=== PATIENT | female | born 1995 | race Caucasian/White ===

== ENCOUNTER → 2019-07-21 | Outpatient (CLI) | payer OTHER | END | disposition home or self-care (01) | LOC: LAB 10:32 | PROVIDERS: ATTEND Preventive Medicine Preventive Medicine/Occupational Environmental Medicine | DX: Z02.1 Encounter for pre-employment examination (principal) | CPT/HCPCS: 36415; 86706; 86735; 86762; 86765; 86787 ==

== ENCOUNTER → 2019-12-22 | Outpatient (CLI) | payer BC, MEDICAID ==
[2019-12-22 11:02] LABS: Basophils # (auto) 0 uL; Basophils % (auto) 0.7 % (0.0-2.0); Eosinophils # (auto) 0.1 uL; Eosinophils % (auto) 2.7 % (0.0-7.0); Hematocrit 41.4 % (36.0-46.0); Lymphocytes % (auto) 42.9 % (10.0-50.0); Mean Corpuscular Hemoglobin 30.8 pg (28.0-32.0); Mean Corpuscular Hgb Conc. 33.7 g/dL (32.0-36.0); Mean Corpuscular Volume 91.3 fL (80.0-100.0); Monocytes # (auto) 0.4 uL; Monocytes % (auto) 9.4 % (0.0-12.0); Neutrophils # (auto) 2.1 uL; Neutrophils % (auto) 44.3 % (37.0-80.0); Nucleated Red Blood Cells % 0.1 %; Platelet Count (auto) 168 10^3/uL (140-450); Red Blood Cells 4.53 10^6/uL (4.0-5.20); Red Cell Distribution Width 13.2 % (11.8-14.3); White Blood Cell 4.7 10^3/uL (4.4-10.8)
== END | disposition home or self-care (01) ==
LOC: LAB 10:47
PROVIDERS: ATTEND Specialist
DX: N93.9 Abnormal uterine and vaginal bleeding, unspecified (principal)
CPT/HCPCS: 36415; 84702; 85025; 87086

== ENCOUNTER → 2019-12-31 | Outpatient (CLI) | payer BC ==
[2019-12-31 14:25] LABS: Basophils # (auto) 0 uL; Basophils % (auto) 0.9 % (0.0-2.0); Eosinophils # (auto) 0.1 uL; Eosinophils % (auto) 1.9 % (0.0-7.0); Hematocrit 42.5 % (36.0-46.0); Hemoglobin 14.2 g/dL (12.2-16.2); Lymphocytes # (auto) 1.3 uL; Lymphocytes % (auto) 26.1 % (10.0-50.0); Mean Corpuscular Hemoglobin 30.7 pg (28.0-32.0); Mean Corpuscular Hgb Conc. 33.4 g/dL (32.0-36.0); Mean Corpuscular Volume 91.8 fL (80.0-100.0); Monocytes # (auto) 0.3 uL; Monocytes % (auto) 6.5 % (0.0-12.0); Neutrophils # (auto) 3.1 uL; Neutrophils % (auto) 64.6 % (37.0-80.0); Platelet Count (auto) 171 10^3/uL (140-450); Red Blood Cells 4.63 10^6/uL (4.0-5.20); Red Cell Distribution Width 13.2 % (11.8-14.3); White Blood Cell 4.8 10^3/uL (4.4-10.8)
[2019-12-31 14:53] LABS: Albumin 3.9 g/dL (3.4-5.0); Calcium 9.1 mg/dL (8.5-10.1); Potassium 4.1 mmol/L (3.5-5.1)
[2019-12-31 14:59] LABS: BUN/Creatinine Ratio 11.6; Bilirubin, Total 0.9 mg/dL (0.2-1.0); Total Protein 7.4 g/dL (6.4-8.2)
== END | disposition home or self-care (01) ==
LOC: LAB 14:09
PROVIDERS: ATTEND Internal Medicine
DX: K59.00 Constipation, unspecified (principal); R42 Dizziness and giddiness
CPT/HCPCS: 36415; 80053; 80061; 83036; 84439; 84443; 85025; 85379; 85652

== ENCOUNTER → 2020-02-07 | Outpatient (CLI) | payer BC | END | disposition home or self-care (01) | LOC: LAB 15:10 | PROVIDERS: ATTEND Internal Medicine | DX: K59.09 Other constipation (principal) | CPT/HCPCS: 36415; 82565; 84520 ==

== ENCOUNTER → 2020-04-28 | Day surgery (SDC) | payer BC, MEDICAID ==
[2020-04-26 15:19] LABS: Basophils # (auto) 0 10 ^3/uL (0-0.2); Basophils % (auto) 0.6 % (0.0-2.0); Eosinophils # (auto) 0.1 10 ^3/uL (0-0.8); Eosinophils % (auto) 2.3 % (0.0-7.0); Hematocrit 43.5 % (36.0-46.0); Hemoglobin 14.5 g/dL (12.2-16.2); Lymphocytes # (auto) 1.5 10 ^3/uL (0.4-5.4); Lymphocytes % (auto) 26.1 % (10.0-50.0); Mean Corpuscular Hemoglobin 30.9 pg (28.0-32.0); Mean Corpuscular Hgb Conc. 33.4 g/dL (32.0-36.0); Mean Corpuscular Volume 92.4 fL (80.0-100.0); Monocytes # (auto) 0.5 10 ^3/uL (0-1.3); Neutrophils # (auto) 3.6 10 ^3/uL (1.6-8.6); Platelet Count (auto) 170 10^3/uL (140-450); Red Blood Cells 4.71 10^6/uL (4.0-5.20); Red Cell Distribution Width 13.4 % (11.8-14.3); White Blood Cell 5.7 10^3/uL (4.4-10.8)
[2020-04-26 15:27] LABS: INR 0.95 (0.9-1.15); Partial Thromboplastin Time 25.6 sec (23.64-32.05)
[~2020-04-28] VITALS: Ht 160 cm; Wt 74.8 kg
[~2020-04-28] MED LIST: FLUO-126 PO; LACT10SO70 PO; MELA10CA PO; SODIUM CHLORIDE LOCK 10 ML ONE; [UNRECOGNIZED DRUG - CODE] PO
[2020-04-28] MEDS: fentaNYL CITRATE 100 MCG/2 ML VL ONE ×2 (11:50→11:53)
[2020-04-28] MEDS: MIDAZOLAM HCL 5 MG/ML-1ML VIAL ONE ×2 (11:50→11:53)
[2020-04-28] MEDS: diphenhdrAMINE HCL 50 MG/1 ML VL ONE ×2 (11:50→11:53)
[2020-04-28 12:26] VITALS: BP 111/67
== END | disposition home or self-care (01) ==
LOC: GI 10:54
PROVIDERS: ATTEND Internal Medicine Gastroenterology
DX: K59.00 Constipation, unspecified (principal); K64.8 Other hemorrhoids; K63.89 Other specified diseases of intestine; F41.9 Anxiety disorder, unspecified; Z88.0 Allergy status to penicillin; Z88.1 Allergy status to other antibiotic agents; Z98.890 Other specified postprocedural states; Z79.899 Other long term (current) drug therapy; Z11.59 Encounter for screening for other viral diseases
CPT/HCPCS: 36415; 45378; 84702; 85025; 85610; 85730; J1200; J2250; J3010; J7030; U0003; 99152

== ENCOUNTER → 2020-05-31 | Outpatient (CLI) | payer BC, MEDICAID ==
[~2020-05-31] MED LIST changes: -SODIUM CHLORIDE LOCK 10 ML ONE
[2020-05-31 10:48] LABS: Follicle Stimulating Hormone 3.88 IU/L (SEE BELOW)
== END | disposition home or self-care (01) ==
LOC: LAB 09:26
PROVIDERS: ATTEND Obstetrics & Gynecology
DX: N93.9 Abnormal uterine and vaginal bleeding, unspecified (principal)
CPT/HCPCS: 36415; 82670; 83001; 83002; 84403; 84443

== ENCOUNTER → 2020-06-08 | Outpatient (CLI) | payer BC, MEDICAID ==
[2020-06-08 17:33] LABS: Basophils # (auto) 0 10 ^3/uL (0-0.2); Basophils % (auto) 0.6 % (0.0-2.0); Eosinophils # (auto) 0.2 10 ^3/uL (0-0.8); Eosinophils % (auto) 4.1 % (0.0-7.0); Hematocrit 41.7 % (36.0-46.0); Lymphocytes # (auto) 1.9 10 ^3/uL (0.4-5.4); Lymphocytes % (auto) 35.6 % (10.0-50.0); Mean Corpuscular Hemoglobin 31.1 pg (28.0-32.0); Mean Corpuscular Hgb Conc. 33.5 g/dL (32.0-36.0); Monocytes # (auto) 0.4 10 ^3/uL (0-1.3); Monocytes % (auto) 6.7 % (0.0-12.0); Neutrophils # (auto) 2.9 10 ^3/uL (1.6-8.6); Platelet Count (auto) 184 10^3/uL (140-450); Red Blood Cells 4.49 10^6/uL (4.0-5.20); Red Cell Distribution Width 13.2 % (11.8-14.3); White Blood Cell 5.4 10^3/uL (4.4-10.8)
== END | disposition home or self-care (01) ==
LOC: LAB 16:41
PROVIDERS: ATTEND Internal Medicine
DX: M25.50 Pain in unspecified joint (principal)
CPT/HCPCS: 36415; 82378; 85025; 85652; 86038; 86431

== ENCOUNTER → 2020-06-15 | Outpatient (CLI) | payer BC, MEDICAID ==
[2020-06-15 12:21] LABS: Basophils # (auto) 0 10 ^3/uL (0-0.2); Basophils % (auto) 0.7 % (0.0-2.0); Eosinophils # (auto) 0.3 10 ^3/uL (0-0.8); Eosinophils % (auto) 5.1 % (0.0-7.0); Hematocrit 42.2 % (36.0-46.0); Lymphocytes # (auto) 2.5 10 ^3/uL (0.4-5.4); Lymphocytes % (auto) 37.4 % (10.0-50.0); Mean Corpuscular Hemoglobin 30.9 pg (28.0-32.0); Mean Corpuscular Hgb Conc. 33.2 g/dL (32.0-36.0); Mean Corpuscular Volume 93.2 fL (80.0-100.0); Monocytes # (auto) 0.4 10 ^3/uL (0-1.3); Neutrophils # (auto) 3.4 10 ^3/uL (1.6-8.6); Neutrophils % (auto) 50.8 % (37.0-80.0); Nucleated Red Blood Cells % 0.1 %; Platelet Count (auto) 193 10^3/uL (140-450); Red Blood Cells 4.54 10^6/uL (4.0-5.20); Red Cell Distribution Width 13.1 % (11.8-14.3); White Blood Cell 6.6 10^3/uL (4.4-10.8)
== END | disposition home or self-care (01) ==
LOC: LAB 11:54
PROVIDERS: ATTEND Obstetrics & Gynecology
DX: R10.9 Unspecified abdominal pain (principal)
CPT/HCPCS: 36415; 84702; 85025

== ENCOUNTER → 2020-07-18 | Outpatient (CLI) | payer BC, MEDICAID | END | disposition home or self-care (01) | LOC: LAB 09:20 | PROVIDERS: ATTEND Specialist | DX: R10.9 Unspecified abdominal pain (principal) | CPT/HCPCS: 36415; 82565; 84520 ==

== ENCOUNTER 2020-10-22 10:04 | Emergency (ER) | payer BC, MEDICAID ==
[~2020-10-22] VITALS: Ht 157.5 cm; Wt 79.4 kg
[2020-10-22 11:56] LABS: Basophils # (auto) 0 10 ^3/uL (0-0.2); Basophils % (auto) 0.6 % (0.0-2.0); Eosinophils # (auto) 0.1 10 ^3/uL (0-0.8); Eosinophils % (auto) 1.4 % (0.0-7.0); Hematocrit 40.1 % (36.0-46.0); Hemoglobin 13.7 g/dL (12.2-16.2); Lymphocytes # (auto) 1.5 10 ^3/uL (0.4-5.4); Lymphocytes % (auto) 28.6 % (10.0-50.0); Mean Corpuscular Hemoglobin 31.6 pg (28.0-32.0); Mean Corpuscular Hgb Conc. 34.1 g/dL (32.0-36.0); Mean Corpuscular Volume 92.6 fL (80.0-100.0); Monocytes # (auto) 0.3 10 ^3/uL (0-1.3); Neutrophils # (auto) 3.4 10 ^3/uL (1.6-8.6); Neutrophils % (auto) 63.4 % (37.0-80.0); Nucleated Red Blood Cells % 0.1 %; Platelet Count (auto) 220 10^3/uL (140-450); Red Blood Cells 4.33 10^6/uL (4.0-5.20); White Blood Cell 5.4 10^3/uL (4.4-10.8)
[2020-10-22 12:17] LABS: Potassium 4.4 mmol/L (3.5-5.1)
[2020-10-22 12:23] LABS: Albumin 3.7 g/dL (3.4-5.0); BUN/Creatinine Ratio 15.5; Bilirubin, Total 0.4 mg/dL (0.2-1.0); Calcium 9.2 mg/dL (8.5-10.1); Total Protein 7.5 g/dL (6.4-8.2)
[2020-10-22 16:00] VITALS: BP 136/78
== END 2020-10-22 16:46 | disposition home or self-care (01) ==
LOC: ER 10:04
DX: G43.909 Migraine, unspecified, not intractable, without status migrainosus (principal)
CPT/HCPCS: 36415; 70450; 80053; 85025

== ENCOUNTER → 2020-11-06 | Outpatient (CLI) | payer BC, MEDICAID | END | disposition home or self-care (01) | LOC: LAB 15:58 | PROVIDERS: ATTEND Physician Assistant | DX: Z20.828 Contact with and (suspected) exposure to other viral communicable diseases (principal) | CPT/HCPCS: C9803; U0003 ==

== ENCOUNTER → 2020-12-25 | Outpatient (CLI) | payer BC, MEDICAID ==
[2020-12-25 10:58] LABS: Basophils # (auto) 0 10 ^3/uL (0-0.2); Basophils % (auto) 0.8 % (0.0-2.0); Eosinophils # (auto) 0.1 10 ^3/uL (0-0.8); Eosinophils % (auto) 1.9 % (0.0-7.0); Hematocrit 37.6 % (36.0-46.0); Hemoglobin 12.8 g/dL (12.2-16.2); Lymphocytes # (auto) 2.1 10 ^3/uL (0.4-5.4); Lymphocytes % (auto) 43.4 % (10.0-50.0); Mean Corpuscular Hemoglobin 31.2 pg (28.0-32.0); Mean Corpuscular Volume 91.8 fL (80.0-100.0); Monocytes # (auto) 0.4 10 ^3/uL (0-1.3); Monocytes % (auto) 8.3 % (0.0-12.0); Neutrophils # (auto) 2.2 10 ^3/uL (1.6-8.6); Neutrophils % (auto) 45.6 % (37.0-80.0); Nucleated Red Blood Cells % 0.1 %; Platelet Count (auto) 209 10^3/uL (140-450); Red Blood Cells 4.09 10^6/uL (4.0-5.20); Red Cell Distribution Width 12.5 % (11.8-14.3); White Blood Cell 4.8 10^3/uL (4.4-10.8)
[2020-12-25 11:31] LABS: Calcium 9.2 mg/dL (8.5-10.1); Potassium 4.1 mmol/L (3.5-5.1)
[2020-12-25 11:46] LABS: Albumin 3.7 g/dL (3.4-5.0); BUN/Creatinine Ratio 21.7; Bilirubin, Total 0.6 mg/dL (0.2-1.0); Total Protein 7.9 g/dL (6.4-8.2)
== END | disposition home or self-care (01) ==
LOC: LAB 10:38
PROVIDERS: ATTEND Internal Medicine
DX: J90 Pleural effusion, not elsewhere classified (principal); Z86.16 Personal history of COVID-19
CPT/HCPCS: 36415; 80053; 82728; 85025; 85379; 85652

== ENCOUNTER → 2021-02-21 | Outpatient (CLI) | payer BC, MEDICAID | END | disposition home or self-care (01) | LOC: LAB 12:32 | PROVIDERS: ATTEND Nurse Practitioner Family | DX: R30.0 Dysuria (principal) | CPT/HCPCS: 87086 ==

== ENCOUNTER 2021-04-16 14:52 | Emergency (ER) | payer BC, MEDICAID ==
[~2021-04-16] VITALS: Ht 157.5 cm; Wt 83.9 kg
[2021-04-16] MEDS ORDERED: ASPirin 81 mg TAB PO ONE (15:15)
[2021-04-16 15:38] LABS: Basophils # (auto) 0 10 ^3/uL (0-0.2); Basophils % (auto) 0.6 % (0.0-2.0); Eosinophils # (auto) 0.1 10 ^3/uL (0-0.8); Eosinophils % (auto) 0.9 % (0.0-7.0); Hematocrit 40.5 % (36.0-46.0); Hemoglobin 14.1 g/dL (12.2-16.2); Lymphocytes # (auto) 1.9 10 ^3/uL (0.4-5.4); Lymphocytes % (auto) 30.2 % (10.0-50.0); Mean Corpuscular Hemoglobin 31.1 pg (28.0-32.0); Mean Corpuscular Hgb Conc. 34.7 g/dL (32.0-36.0); Mean Corpuscular Volume 89.5 fL (80.0-100.0); Monocytes # (auto) 0.3 10 ^3/uL (0-1.3); Monocytes % (auto) 5.2 % (0.0-12.0); Neutrophils # (auto) 4.1 10 ^3/uL (1.6-8.6); Neutrophils % (auto) 63.1 % (37.0-80.0); Nucleated Red Blood Cells % 0.2 %; Platelet Count (auto) 231 10^3/uL (140-450); Red Blood Cells 4.53 10^6/uL (4.0-5.20); Red Cell Distribution Width 12.7 % (11.8-14.3); White Blood Cell 6.4 10^3/uL (4.4-10.8)
[2021-04-16] MEDS ORDERED: LORazepam 0.5 MG TAB PO ONE (15:45)
[2021-04-16 16:08] LABS: Albumin 4.2 g/dL (3.4-5.0); Anion Gap 7 (5-15); Blood Urea Nitrogen 11 mg/dL (7-18); Calcium 9.2 mg/dL (8.5-10.1); Carbon Dioxide 26 mmol/L (21-32); Chloride 106 mmol/L (98-107); Glucose 94 mg/dL (74-106); Sodium 139 mmol/L (136-145)
[2021-04-16 16:10] LABS: Alanine Aminotransferase 27 U/L (13-56); Aspartate Aminotransferase 15 U/L (15-37); BUN/Creatinine Ratio 12.1; GFR African American 98 mL/min; GFR Non-African American 81 mL/min
[2021-04-16 16:15] LABS: Alkaline Phosphatase 49 U/L (45-117); Bilirubin, Total 0.5 mg/dL (0.2-1.0); Total Protein 8.2 g/dL (6.4-8.2)
[2021-04-16 19:29] VITALS: BP 119/65
== END 2021-04-16 19:44 | disposition home or self-care (01) ==
LOC: ER 14:52
DX: R07.89 Other chest pain (principal); F41.9 Anxiety disorder, unspecified; R42 Dizziness and giddiness
CPT/HCPCS: 36415; 70450; 80053; 84484; 85025; 93005

== ENCOUNTER → 2021-05-17 | Outpatient (CLI) | payer BC, MEDICAID ==
[2021-05-17 11:13] LABS: Basophils # (auto) 0.1 10 ^3/uL (0-0.2); Basophils % (auto) 0.7 % (0.0-2.0); Eosinophils # (auto) 0.1 10 ^3/uL (0-0.8); Hemoglobin 13.6 g/dL (12.2-16.2); Lymphocytes # (auto) 2.1 10 ^3/uL (0.4-5.4); Mean Corpuscular Hemoglobin 30.8 pg (28.0-32.0); Mean Corpuscular Hgb Conc. 34.9 g/dL (32.0-36.0); Mean Corpuscular Volume 88.2 fL (80.0-100.0); Monocytes # (auto) 0.5 10 ^3/uL (0-1.3); Neutrophils # (auto) 5.3 10 ^3/uL (1.6-8.6); Neutrophils % (auto) 66.3 % (37.0-80.0); Platelet Count (auto) 205 10^3/uL (140-450); Red Blood Cells 4.42 10^6/uL (4.0-5.20); Red Cell Distribution Width 13.2 % (11.8-14.3); White Blood Cell 7.9 10^3/uL (4.4-10.8)
[2021-05-17 12:51] LABS: Calcium 8.9 mg/dL (8.5-10.1)
[2021-05-17 12:56] LABS: BUN/Creatinine Ratio 15.5; Bilirubin, Total 0.6 mg/dL (0.2-1.0); Total Protein 8.2 g/dL (6.4-8.2)
== END | disposition home or self-care (01) ==
LOC: LAB 10:55
PROVIDERS: ATTEND Internal Medicine
DX: E03.9 Hypothyroidism, unspecified (principal)
CPT/HCPCS: 36415; 80053; 84439; 84443; 85025; 85049; 85652

== ENCOUNTER → 2021-05-23 | Outpatient (CLI) | payer BC, MEDICAID | END | disposition home or self-care (01) | LOC: LAB 15:28 | PROVIDERS: ATTEND Internal Medicine | DX: E03.9 Hypothyroidism, unspecified (principal) | CPT/HCPCS: 87045; 87177; 87427 ==

== ENCOUNTER → 2022-09-26 | Outpatient (CLI) | payer BC, MEDICAID ==
[2022-09-26 11:57] LABS: Basophils # (auto) 0.1 10 ^3/uL (0-0.2); Basophils % (auto) 1.2 % (0.0-2.0); Eosinophils # (auto) 0.1 10 ^3/uL (0-0.8); Eosinophils % (auto) 1.2 % (0.0-7.0); Hemoglobin 12.9 g/dL (12.2-16.2); Lymphocytes # (auto) 1.3 10 ^3/uL (0.4-5.4); Lymphocytes % (auto) 24.8 % (10.0-50.0); Mean Corpuscular Hemoglobin 30.2 pg (28.0-32.0); Mean Corpuscular Hgb Conc. 33.1 g/dL (32.0-36.0); Mean Corpuscular Volume 91.2 fL (80.0-100.0); Monocytes # (auto) 0.3 10 ^3/uL (0-1.3); Monocytes % (auto) 5.4 % (0.0-12.0); Neutrophils # (auto) 3.7 10 ^3/uL (1.6-8.6); Neutrophils % (auto) 67.4 % (37.0-80.0); Nucleated Red Blood Cells % 0.2 %; Red Blood Cells 4.27 10^6/uL (4.0-5.20); Red Cell Distribution Width 13.4 % (11.8-14.3); White Blood Cell 5.4 10^3/uL (4.4-10.8)
[2022-09-26 12:36] LABS: Calcium 9.1 mg/dL (8.5-10.1); Potassium 3.9 mmol/L (3.5-5.1)
[2022-09-26 12:42] LABS: Albumin 3.6 g/dL (3.4-5.0); BUN/Creatinine Ratio 10.8; Bilirubin, Total 0.8 mg/dL (0.2-1.0); Free T4 (Free Thyroxine) 1.05 ng/dL (0.89-1.76); Total Protein 7.3 g/dL (6.4-8.2)
[2022-09-26 12:43] LABS: Follicle Stimulating Hormone 7.34 IU/L (SEE BELOW)
== END | disposition home or self-care (01) ==
LOC: LAB 11:09
PROVIDERS: ATTEND Internal Medicine
DX: R61 Generalized hyperhidrosis (principal); K59.00 Constipation, unspecified
CPT/HCPCS: 36415; 80053; 82670; 82672; 83001; 84144; 84439; 84443; 85025; 87040; 87086

== ENCOUNTER → 2022-10-18 | Outpatient (CLI) | payer BC, MEDICAID ==
[2022-10-18 08:04] LABS: Basophils # (auto) 0 10 ^3/uL (0-0.2); Basophils % (auto) 0.6 % (0.0-2.0); Eosinophils # (auto) 0.1 10 ^3/uL (0-0.8); Hematocrit 39.1 % (36.0-46.0); Hemoglobin 13.1 g/dL (12.2-16.2); Lymphocytes # (auto) 2.8 10 ^3/uL (0.4-5.4); Lymphocytes % (auto) 44.7 % (10.0-50.0); Mean Corpuscular Hgb Conc. 33.5 g/dL (32.0-36.0); Mean Corpuscular Volume 89.3 fL (80.0-100.0); Monocytes # (auto) 0.4 10 ^3/uL (0-1.3); Monocytes % (auto) 5.8 % (0.0-12.0); Neutrophils % (auto) 47.9 % (37.0-80.0); Nucleated Red Blood Cells % 0.1 %; Red Blood Cells 4.38 10^6/uL (4.0-5.20); Red Cell Distribution Width 13.2 % (11.8-14.3); White Blood Cell 6.4 10^3/uL (4.4-10.8)
[2022-10-18 08:14] LABS: Urine Bacteria NONE SEEN /hpf (None Seen); Urine Blood Negative /uL (Negative); Urine Mucus FEW (None Seen); Urine Specific Gravity 1.029 (1.001-1.035); Urine WBC 1 /hpf (0 - 5)
[2022-10-18 08:16] LABS: Albumin 3.8 g/dL (3.4-5.0); Calcium 9.1 mg/dL (8.5-10.1); Potassium 3.8 mmol/L (3.5-5.1)
[2022-10-18 08:20] LABS: BUN/Creatinine Ratio 16.1; Bilirubin, Total 0.6 mg/dL (0.2-1.0); Total Protein 7.8 g/dL (6.4-8.2)
== END | disposition home or self-care (01) ==
LOC: LAB 07:44
PROVIDERS: ATTEND Internal Medicine
DX: N83.201 Unspecified ovarian cyst, right side (principal); K29.70 Gastritis, unspecified, without bleeding
CPT/HCPCS: 36415; 80053; 81001; 82150; 83690; 85025; 86304

== ENCOUNTER → 2022-12-12 | Outpatient (CLI) | payer BC, MEDICAID ==
[2022-12-12 11:44] LABS: Basophils # (auto) 0 10 ^3/uL (0-0.2); Basophils % (auto) 0.8 % (0.0-2.0); Eosinophils # (auto) 0 10 ^3/uL (0-0.8); Eosinophils % (auto) 0.8 % (0.0-7.0); Hematocrit 40.2 % (36.0-46.0); Hemoglobin 13.7 g/dL (12.2-16.2); Lymphocytes # (auto) 1.8 10 ^3/uL (0.4-5.4); Lymphocytes % (auto) 37.7 % (10.0-50.0); Mean Corpuscular Hemoglobin 30.9 pg (28.0-32.0); Mean Corpuscular Hgb Conc. 34.1 g/dL (32.0-36.0); Mean Corpuscular Volume 90.7 fL (80.0-100.0); Monocytes # (auto) 0.3 10 ^3/uL (0-1.3); Monocytes % (auto) 5.6 % (0.0-12.0); Neutrophils # (auto) 2.7 10 ^3/uL (1.6-8.6); Neutrophils % (auto) 55.1 % (37.0-80.0); Red Blood Cells 4.43 10^6/uL (4.0-5.20); Red Cell Distribution Width 13.1 % (11.8-14.3); White Blood Cell 4.8 10^3/uL (4.4-10.8)
== END | disposition home or self-care (01) ==
LOC: LAB 11:33
PROVIDERS: ATTEND Internal Medicine
DX: Z01.812 Encounter for preprocedural laboratory examination (principal)
CPT/HCPCS: 36415; 85025

== ENCOUNTER → 2024-05-06 | Day surgery (SDC) | payer BC, MEDICAID ==
[2024-05-03 10:02] LABS: Urine Bacteria None Seen /hpf (None Seen)
[2024-05-03 10:04] LABS: Basophils # (auto) 0.1 10 ^3/uL (0-0.2); Basophils % (auto) 0.6 % (0.0-2.0); Eosinophils # (auto) 0.1 10 ^3/uL (0-0.8); Eosinophils % (auto) 1.2 % (0.0-7.0); Hemoglobin 13.8 g/dL (12.2-16.2); Lymphocytes # (auto) 1.8 10 ^3/uL (0.4-5.4); Lymphocytes % (auto) 21.6 % (10.0-50.0); Mean Corpuscular Hemoglobin 31.3 pg (28.0-32.0); Mean Corpuscular Hgb Conc. 33.7 g/dL (32.0-36.0); Mean Corpuscular Volume 92.8 fL (80.0-100.0); Monocytes # (auto) 0.5 10 ^3/uL (0-1.3); Monocytes % (auto) 5.5 % (0.0-12.0); Neutrophils # (auto) 5.9 10 ^3/uL (1.6-8.6); Neutrophils % (auto) 71.1 % (37.0-80.0); Nucleated Red Blood Cells % 0.1 %; Red Blood Cells 4.42 10^6/uL (4.0-5.20); Red Cell Distribution Width 13.2 % (11.8-14.3); White Blood Cell 8.4 10^3/uL (4.4-10.8)
[2024-05-03 10:20] LABS: INR 0.93 (0.9-1.15); Partial Thromboplastin Time 25.6 SEC (24.5-34.5); Prothrombin Time 9.9 sec (9.3-11.8)
[2024-05-03 10:30] LABS: Urine Blood Negative /uL (Negative); Urine Clarity Clear (Clear); Urine Color Yellow (Yellow); Urine Hyaline Cast FEW /lpf (0 - 2); Urine Mucus FEW (None Seen); Urine Protein, UAD TRACE (Negative); Urine Specific Gravity 1.023 (1.001-1.035); Urine Urobilinogen Normal (Negative); Urine WBC 1 /hpf (0 - 5); Urine pH 5.5 (5.0-9.0)
[2024-05-03 11:08] LABS: Alanine Aminotransferase 23 U/L (7-40); Alkaline Phosphatase 56 U/L (46-116); Anion Gap 4 (5-15); Blood Urea Nitrogen 9 mg/dL (9-23); Calcium 9.5 mg/dL (8.5-10.1); Carbon Dioxide 24 mmol/L (20-30); Chloride 111 mmol/L (98-107); Glucose 87 mg/dL (74-106); Potassium 3.9 mmol/L (3.5-5.1); Sodium 139 mmol/L (136-145)
[2024-05-03 11:09] LABS: Albumin 4.7 g/dL (3.2-4.8); Aspartate Aminotransferase 8 U/L (13-40); Bilirubin, Total 0.4 mg/dL (0.2-1.0); Total Protein 7.1 g/dL (5.7-8.2)
[~2024-05-06] VITALS: Ht 160 cm; Wt 73.0 kg
[~2024-05-06] MED LIST changes: +DexAMETHasone SOD PHOS 10MG/1ML VIAL INJ ONE; -FLUO-126 PO; +HYDR1TAB97 PO; +HYDROmorphone HCL 2 MG/ML VL/or syr IV PRN; +IBUP1TAB5 PO; +KETOROLAC TROMETH 30 MG/ML 1ML VIAL IV ONE; +KETOROLAC TROMETH 30 MG/ML 1ML VIAL ONE; +LABETALOL HCL 5 MG/ML 4ML SYRINGE IV PRN; -LACT10SO70 PO; +LIDOCAINE 2% JELLY 11ml (GLYDO) ONE; +LIDOCAINE W/ EPINEPHRINE 1% 20ML VIAL ONE; -MELA10CA PO; +MEPERIDINE HCL (50 MG/ML) 1 ML VIAL ONE; +METHYLENE BLUE 0.5% 5MG/ML 10ml AMP IV ONE; +MIDAZOLAM HCL 2MG/2ML 2ml VIAL (1mg/ml) IV PRN; +MIDAZOLAM HCL 2MG/2ML 2ml VIAL (1mg/ml) ONE; +MORPHINE SULFATE 4 MG/ML SYR/VIAL IV PRN; +NORE-68 PO; +ONDANSETRON HCL 4 MG/2 ML VIAL IV ONE; +ONDANSETRON HCL 4 MG/2 ML VIAL ONE; +PROPOFOL 10 MG/ML 20 ML IV ONE; +ROCURONIUM 10MG/ML 10ML VIAL IV ONE; +SERT25TA28 PO; +SUGAMMADEX 200mg/2ml Vial (100MG/ML) IV ONE; +ceFAZolin 2 GM/D5W50ml 50 ML IV ONE; +ePHEDrine SULFATE 50 MG/ML AMP IV PRN; +fentaNYL CITRATE 100 MCG/2 ML VL ONE; +oxyCODONE HCL 5MG TAB ONE
[2024-05-06 09:24] VITALS: RESP 19; TEMP 97.8; O2SAT 100
[2024-05-06] MEDS: oxyCODONE HCL 5MG TAB PO PRN (10:05)
[2024-05-06 10:20] VITALS: BP 116/66; PULSE 69; RESP 16; O2SAT 99
== END | disposition home or self-care (01) ==
LOC: EEVIPCON → SUR 06:30
PROVIDERS: ATTEND Obstetrics & Gynecology
DX: R10.2 Pelvic and perineal pain (principal); N80.9 Endometriosis, unspecified; N97.9 Female infertility, unspecified; Q51.4 Unicornate uterus; K21.9 Gastro-esophageal reflux disease without esophagitis; F41.9 Anxiety disorder, unspecified; Z88.0 Allergy status to penicillin; Z88.1 Allergy status to other antibiotic agents; Z88.8 Allergy status to other drugs, medicaments and biological substances; Z79.899 Other long term (current) drug therapy; Z98.890 Other specified postprocedural states
CPT/HCPCS: 36415; 49321; 58350; 58555; 80053; 81001; 81025; 84702; 85025; 85610; 85730; 86850; 86900; 86901; 88305; 88342; J0690; J1100; J1885; J2175; J2250; J2405; J2704; J3010; J3490; J7040; Q9968

== ENCOUNTER → 2024-09-08 | Outpatient (CLI) | payer BC ==
[~2024-09-08] MED LIST changes: -DexAMETHasone SOD PHOS 10MG/1ML VIAL INJ ONE; -HYDROmorphone HCL 2 MG/ML VL/or syr IV PRN; -KETOROLAC TROMETH 30 MG/ML 1ML VIAL IV ONE; -KETOROLAC TROMETH 30 MG/ML 1ML VIAL ONE; -LABETALOL HCL 5 MG/ML 4ML SYRINGE IV PRN; -LIDOCAINE 2% JELLY 11ml (GLYDO) ONE; -LIDOCAINE W/ EPINEPHRINE 1% 20ML VIAL ONE; -MEPERIDINE HCL (50 MG/ML) 1 ML VIAL ONE; -METHYLENE BLUE 0.5% 5MG/ML 10ml AMP IV ONE; -MIDAZOLAM HCL 2MG/2ML 2ml VIAL (1mg/ml) IV PRN; -MIDAZOLAM HCL 2MG/2ML 2ml VIAL (1mg/ml) ONE; -MORPHINE SULFATE 4 MG/ML SYR/VIAL IV PRN; -ONDANSETRON HCL 4 MG/2 ML VIAL IV ONE; -ONDANSETRON HCL 4 MG/2 ML VIAL ONE; -PROPOFOL 10 MG/ML 20 ML IV ONE; -ROCURONIUM 10MG/ML 10ML VIAL IV ONE; -SUGAMMADEX 200mg/2ml Vial (100MG/ML) IV ONE; -ceFAZolin 2 GM/D5W50ml 50 ML IV ONE; -ePHEDrine SULFATE 50 MG/ML AMP IV PRN; -fentaNYL CITRATE 100 MCG/2 ML VL ONE; -oxyCODONE HCL 5MG TAB ONE
[2024-09-08 13:41] LABS: Basophils # (auto) 0 10 ^3/uL (0-0.2); Basophils % (auto) 0.4 % (0.0-2.0); Eosinophils # (auto) 0.1 10 ^3/uL (0-0.8); Eosinophils % (auto) 0.9 % (0.0-7.0); Hematocrit 40.2 % (36.0-46.0); Hemoglobin 13.8 g/dL (12.2-16.2); Lymphocytes # (auto) 1.6 10 ^3/uL (0.4-5.4); Lymphocytes % (auto) 26.4 % (10.0-50.0); Mean Corpuscular Hemoglobin 31.8 pg (28.0-32.0); Mean Corpuscular Hgb Conc. 34.5 g/dL (32.0-36.0); Mean Corpuscular Volume 92.3 fL (80.0-100.0); Monocytes # (auto) 0.4 10 ^3/uL (0-1.3); Monocytes % (auto) 6.1 % (0.0-12.0); Neutrophils % (auto) 66.2 % (37.0-80.0); Platelet Count (auto) 163 10^3/uL (140-450); Red Blood Cells 4.35 10^6/uL (4.0-5.20); Red Cell Distribution Width 13.6 % (11.8-14.3); White Blood Cell 6.1 10^3/uL (4.4-10.8)
[2024-09-08 13:53] LABS: Urine Bacteria FEW /hpf (None Seen); Urine Blood Negative /uL (Negative); Urine Clarity Clear (Clear); Urine Color Light-Yellow (Yellow); Urine Mucus FEW (None Seen); Urine Protein, UAD Negative (Negative); Urine Specific Gravity 1.017 (1.001-1.035); Urine Urobilinogen Normal (Negative); Urine WBC 1 /hpf (0 - 5)
[2024-09-08 14:45] LABS: Alanine Aminotransferase 20 U/L (7-40); Albumin 4.6 g/dL (3.2-4.8); Alkaline Phosphatase 51 U/L (46-116); Anion Gap 7 (5-15); Aspartate Aminotransferase 11 U/L (13-40); BUN/Creatinine Ratio 10.1 (10.0-20.0); Bilirubin, Total 0.6 mg/dL (0.2-1.0); Blood Urea Nitrogen 10 mg/dL (9-23); Calcium 9.6 mg/dL (8.7-10.4); Carbon Dioxide 24 mmol/L (20-31); Chloride 109 mmol/L (98-107); Glucose 90 mg/dL (74-106); Potassium 3.9 mmol/L (3.5-5.1); Sodium 140 mmol/L (136-145); Total Protein 7.3 g/dL (5.7-8.2)
== END | disposition home or self-care (01) ==
LOC: LAB 13:16
PROVIDERS: ATTEND Internal Medicine
DX: R30.0 Dysuria (principal)
CPT/HCPCS: 36415; 80053; 81001; 84443; 85025; 85379

== ENCOUNTER → 2025-01-07 | Day surgery (SDC) | payer BC, MEDICAID ==
[2025-01-03 15:06] LABS: Urine Bacteria None Seen /hpf (None Seen)
--- NOTE | 2025-01-03 16:08 | DVHHP ---
ADMIT DATE: 01/07/2025 PROPOSED DATE OF SURGERY: 01/07/2025 CHIEF COMPLAINT: Chronic pelvic pain. HISTORY OF PRESENT ILLNESS: This is a 29-year-old female. She is nulliparous with a last menstrual period of 12/18/2024. The patient is currently on oral contraceptive pills for the treatment of chronic pelvic pain related to endometriosis. 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 She previously underwent a diagnostic laparoscopy, hysteroscopy and peritoneal biopsy that confirmed the above diagnoses. The patient has continued to have cyclic pelvic pain despite medical treatment. She is adamant about having her rudimentary horn removed. She previously had a second opinion at [facility] for the same indications and is requesting surgical resection. PAST MEDICAL HISTORY: History of depression and uterine anomaly as described above, endometriosis pelvic PAST SURGICAL HISTORY: Colonoscopy, laparoscopy, D&C, hysteroscopy MEDICATIONS: She is on oral contraceptive pills 1/20 mcg. She is on pantoprazole 40 mg once daily and Zoloft 25 mg daily. FAMILY HISTORY: Negative and noncontributory. SOCIAL HISTORY: The patient is . She is a current nonsmoker. Denies any habitual alcohol use. Denies any illicit drug use. REVIEW OF SYSTEMS: A 14-point review of systems is negative as otherwise stated in the history of present illness. PHYSICAL EXAMINATION: VITAL SIGNS: The patient is 5 foot 3 inches tall, weight 190 pounds, blood pressure 122/70. GENERAL: She is pleasant, alert, appears her stated age. No acute distress. HEENT: Normal. LUNGS AND HEART: Lung and heart sounds are normal. ABDOMEN: Obese, soft, nontender, no palpable masses. EXTREMITIES: Without deformity, cyanosis or edema. PELVIC: Currently deferred. OTHER DIAGNOSTIC DATA: MRI reveals that she has a rudimentary left uterine horn with no communication to the main uterus. Bilateral ovaries appear normal. ASSESSMENT: * Chronic pelvic pain. * Endometriosis. * Unicornuate uterus with left rudimentary horn. PLAN: Operative laparoscopic hysterectomy (excision of left uterine horn), possible left salpingectomy, possible ablation and/ or excision of peritoneal endometriosis, cystoscopy, possible laparotomy. She will retain her bilateral ovaries and her main uterus that communicates with the vagina and cervix. No guarantees given that removal of this rudimentary uterine horn will improve either her fertility or pelvic pain. The patient understands that the risks of the procedure include, pain, scar, bleeding, infection, possible injury to bowel, bladder, vessels, and adjacent organs. Informed consent has been obtained. DO BETHANY Garvin/CLIFF/MEKA TID: [id number] RECEIPT: [id number] MTDD
[2025-01-03 16:15] LABS: Urine Blood Negative /uL (Negative); Urine Clarity Clear (Clear); Urine Color Yellow (Yellow); Urine Mucus FEW (None Seen); Urine Protein, UAD Negative (Negative); Urine Specific Gravity 1.024 (1.001-1.035); Urine Squamous Epithelial Cell FEW /hpf (<5); Urine Urobilinogen Normal (Negative); Urine pH 5.5 (5.0-9.0)
[2025-01-03 16:22] LABS: Basophils # (auto) 0 10 ^3/uL (0-0.2); Basophils % (auto) 0.5 % (0.0-2.0); Eosinophils # (auto) 0.1 10 ^3/uL (0-0.8); Hematocrit 42.2 % (36.0-46.0); Lymphocytes # (auto) 2.3 10 ^3/uL (0.4-5.4); Lymphocytes % (auto) 31.6 % (10.0-50.0); Mean Corpuscular Hemoglobin 30.8 pg (28.0-32.0); Mean Corpuscular Hgb Conc. 33.1 g/dL (32.0-36.0); Mean Corpuscular Volume 92.8 fL (80.0-100.0); Monocytes # (auto) 0.4 10 ^3/uL (0-1.3); Monocytes % (auto) 5.2 % (0.0-12.0); Neutrophils # (auto) 4.5 10 ^3/uL (1.6-8.6); Neutrophils % (auto) 60.7 % (37.0-80.0); Nucleated Red Blood Cells % 0.1 %; Platelet Count (auto) 209 10^3/uL (140-450); Red Blood Cells 4.55 10^6/uL (4.0-5.20); Red Cell Distribution Width 13.3 % (11.8-14.3); White Blood Cell 7.4 10^3/uL (4.4-10.8)
[2025-01-03 16:36] LABS: INR 0.92 (0.9-1.15); Partial Thromboplastin Time 26.6 SEC (24.5-34.5); Prothrombin Time 9.8 sec (9.3-11.8)
[2025-01-03 16:48] LABS: Alanine Aminotransferase 26 U/L (7-40); Alkaline Phosphatase 48 U/L (46-116); Anion Gap 7 (5-15); Aspartate Aminotransferase 14 U/L (13-40); Bilirubin, Total 0.4 mg/dL (0.2-1.0); Blood Urea Nitrogen 12 mg/dL (9-23); Calcium 10.1 mg/dL (8.7-10.4); Carbon Dioxide 25 mmol/L (20-31); Chloride 106 mmol/L (98-107); Glucose 90 mg/dL (74-106); Potassium 4.2 mmol/L (3.5-5.1); Sodium 138 mmol/L (136-145)
[2025-01-03 17:00] LABS: Albumin 4.8 g/dL (3.2-4.8)
[~2025-01-07] VITALS: Ht 160 cm; Wt 86.2 kg
[~2025-01-07] MED LIST changes: +DexAMETHasone SOD PHOS 10MG/1ML VIAL INJ ONE; +FAMOTIDINE (10MG/ML) 2ML VL IV ONE; +HYDR-4902 PO; -HYDR1TAB97 PO; +HYDROmorphone HCL 2 MG/ML VL/or syr IV PRN; +HYDROmorphone HCL 2 MG/ML VL/or syr ONE; +IBUP-1455 PO; -IBUP1TAB5 PO; +MIDAZOLAM HCL 2MG/2ML 2ml VIAL (1mg/ml) IV PRN; +MIDAZOLAM HCL 2MG/2ML 2ml VIAL (1mg/ml) ONE; +MORPHINE SULFATE 4 MG/ML SYR/VIAL IV PRN; -NORE-68 PO; +NORE-69 PO; +ONDANSETRON HCL 4 MG/2 ML VIAL ONE; +PANT40TA2 PO; +PROPOFOL 10 MG/ML 20 ML IV ONE; +ROCURONIUM 10MG/ML 10ML VIAL IV ONE; +SUGAMMADEX 200mg/2ml Vial (100MG/ML) IV ONE; -[UNRECOGNIZED DRUG - CODE] PO; +ePHEDrine SULFATE 50 MG/ML AMP IV PRN; +fentaNYL CITRATE 100 MCG/2 ML VL ONE; +hydrALAZINE HCL 20 MG/ML VL IV PRN
[2025-01-07] MEDS: BUPIVACAINE HCL 0.25% P/F 10 ML VIAL ONE (09:17)
[2025-01-07] MEDS: LIDOCAINE W/ EPINEPHRINE 1% 20ML VIAL ONE (09:17)
[2025-01-07 09:35] VITALS: PULSE 88; RESP 17; TEMP 97.4; O2SAT 97
[2025-01-07] MEDS: ceFAZolin 2 GM/D5W100ml 100 ML IV ONE (09:38)
[2025-01-07] MEDS: VASOPRESSIN 20 UNIT/ML ONE ×2 (09:38→09:39)
[2025-01-07] MEDS: KETOROLAC TROMETH 30 MG/ML 1ML VIAL IV ONE (09:38)
[2025-01-07] MEDS: METHYLENE BLUE 0.5% 5MG/ML 10ml AMP IV ONE (09:39)
--- NOTE | 2025-01-07 09:43 | DVHDS2 ---
Physician Discharge Progress N Final Diagnosis: chronic pelvic pain , endometriosis, left rudimentary uterine horn s/p excision left rudimentary uterine horn and left fallopian tube Operations or Procedures: Operations or Procedures Laparoscopic resection of left uterine horn and left fallopian tube Condition on Discharge: Stable Disposition: Home Discharge Instructions: Diet: Regular Activity: Light activity Activity comment: Pelvic rest x 2 weeks. Light activity x 2 weeks, no heavy lifting, gym, heavy exercise Follow Up/Referral: as scheduled in [address] corrigan office Medications: eRx Trimont 5mg and Ibuprofen Follow Up Care: Discharge Statement: "Patient was advised to return to the ER or call 911 if any headaches, dizzi ness, shortness of breath, chest pain, abdominal pain, bleeding, fevers, or worsening of medical condition. Patient was counseled about treatment plan, medications, possible side effects, patientverbalized understanding. All questions were answered to the best of my ability. This discharge took greater then 30 minutes in planning, reviewing documentation, counseling the patient, and discussing with other team members." Visit Coding OBGYN Date of Service: Jan 07, 2025 Billing Provider: LOYD CORRIGAN DO SAND TECHNICIAN Common Visit Codes: PROCEDURE ONLY SAND TECHNICIAN Procedure Codes: 95015-NOD.SRG: EXC.OVRY/PELV/PERIT (excision of left fallopian tube and left uterine horn ) LOYD CORRIGAN DO Jan 07, 2025 09:43
[2025-01-07 09:45] VITALS: PULSE 75; RESP 17; O2SAT 100
[2025-01-07] MEDS: HYDROmorphone HCL 2 MG/ML VL/or syr IV PRN (09:46)
--- NOTE | 2025-01-07 10:01 | DVHOP ---
DATE OF SURGERY: 01/07/2025 PREOPERATIVE DIAGNOSES: * Endometriosis with chronic female pelvic pain * Left rudimentary uterine horn. FINAL DIAGNOSES: Same as above PROCEDURE PERFORMED: Operative laparoscopic resection of the left uterine horn, left salpingectomy. SURGEON: Rolf Ornelas DO BIOINFORMATICS TECHNICIAN: Rosendo Case NP and Sravanthi Childers MD, PGY-1, family practice resident. TYPE OF ANESTHESIA: General endotracheal. ANESTHESIOLOGIST: Sanket Gabriel MD. INDICATIONS FOR PROCEDURE: The patient is a 29-year-old nulliparous female with chronic pelvic pain associated with endometriosis. The patient has a uterine anomaly. She has a Unicornuate uterus with a noncommunicating left rudimentary uterine horn. The patient has monthly menstrual pain with suspected hematometra of the left horn. She requested resection of the horn to alleviate her pelvic pain that has been unresponsive to oral contraceptives and medical treatment otherwise. DESCRIPTION OF FINDINGS: A unicornuate uterus. Uterine cavity sounds to 9 cm. The unicornuate uterus communicates with 1 cervix, normal vagina, with an attached normal right fallopian tube and right ovary. There is a bridge of tissue that communicated the main uterus to the rudimentary left uterine horn. These 2 entities do not share an endometrial cavity. The rudimentary horn had an attached left ovary and left fallopian tube. There was minimal peritoneal endometriosis less than 2-3 mm in size dispersed throughout the parietal peritoneum. There were no uterosacral nodularities, endometriomas or extensive adhesions noted. Survey of the abdomen and pelvis were otherwise normal. TECHNICAL PROCEDURE: After informed consent was obtained, the patient was taken to the operating room where she underwent smooth induction with general anesthesia. She was placed in dorsal lithotomy position in [facility]. The vagina, perineum and abdomen were thoroughly prepped and the patient sterilely draped in usual fashion. A pelvic exam was then performed under anesthesia. A Pathak catheter was placed. A weighted speculum was placed into the patient's vagina and the anterior lip of the cervix grasped with a single tooth tenaculum. Uterine cavity sounded to 9 cm. The cervix was gently dilated to accommodate a HUMI uterine manipulator. The manipulator balloon was inflated. All other instrumentation was then removed from the patient's vagina. Attention was then placed to the patient's abdomen where a 10 mm incision was made through the umbilicus in vertical fashion. A pneumoperitoneum had been obtained using a Veress needle in the usual fashion through this umbilical incision. A 10 mm Optiview trocar was placed through the incision under direct visualization. Two additional 5 mm ports were placed to the left and right of midline under direct visualization. The procedure commenced with a survey of the abdomen and pelvis with the above noted findings. I began by dividing the left fallopian tube across the mesosalpinx. There was no bleeding noted. This was accomplished with the LigaSure device. The rudimentary uterine horn on the left had a round ligament that was identified. It was transected with electrocautery. The peritoneum was then bluntly and sharply dissected to develop an avascular space. The uterine horn was traced to its communication with the main uterus. There was a band of tissue that was desiccated and divided with the LigaSure device. The peritoneum was opened anteriorly and posteriorly. The bladder was dissected in a caudad direction and it was freed from any attachment to this rudimentary uterine horn. The left uterine artery going to the uterine horn was identified and completely coagulated with the LigaSure device and transected with no bleeding noted. The uteroovarian ligament was then safely divided from the left ovary and the left uterine horn. The specimen was then delivered and brought to the anterior cul-de-sac. The vascular pedicles were inspected for hemostasis and confirmed. There was no bleeding noted. At this point, a 10 mm bag was placed through the 10 mm umbilical port. The EndoCatch bag was used to retrieve the specimen. The specimen was brought through the umbilical incision. The incision was slightly extended bluntly and the specimen morcellated manually in the bag under direct visualization. The specimen was then fully retrieved and submitted to pathology. We then irrigated the abdomen and pelvis with saline and again hemostasis was visually confirmed at all surgical sites. About 150 mL of normal saline was left in the pelvis intentionally to help prevent adhesions formation. We then proceeded to close the umbilical 10 mm incision under direct visualization using the Suture Ease CrossBow device, #1 Vicryl was used to approximate the fascial defect, obtaining good tissue closure. Next, the carbon dioxide gas was released. The trocar instruments were removed under direct visualization. The skin incisions were injected with 0.25% Marcaine with epinephrine, approximately 20 mL were used across the 3 incisions. The skin incisions were closed in subcuticular fashion using 3-0 Monocryl and a thin layer of Dermabond was then placed over the incisions. The transcervical uterine manipulator was removed. The patient was taken out of lithotomy position, awakened and taken to recovery room in stable condition. INTRAOPERATIVE COMPLICATIONS: None. ESTIMATED BLOOD LOSS: Less than 50 mL. POSTOPERATIVE CONDITION: Stable. SPECIMENS: Left fallopian tube and left rudimentary uterine horn. COMPLICATIONS: None. PROGNOSIS: Excellent. DO SUNNY Garvin TID: [id number] RECEIPT: [id number] MTDD
[2025-01-07 10:30] VITALS: BP 104/58; PULSE 78; RESP 12; O2SAT 93
[2025-01-07] MEDS: ONDANSETRON HCL 4 MG/2 ML VIAL IV ONE (10:44)
[2025-01-07] MEDS: FAMOTIDINE (10MG/ML) 2ML VL IV ONE (10:58)
== END | disposition home or self-care (01) ==
LOC: SUR 06:28
PROVIDERS: ATTEND Obstetrics & Gynecology
DX: Q51.818 Other congenital malformations of uterus (principal); R10.2 Pelvic and perineal pain; K21.9 Gastro-esophageal reflux disease without esophagitis; N80.399 Endometriosis of the pelvic peritoneum, other specified sites, unspecified depth; F32.A Depression, unspecified; G89.29 Other chronic pain; N80.00 Endometriosis of the uterus, unspecified; N94.6 Dysmenorrhea, unspecified; Z79.899 Other long term (current) drug therapy; Z98.890 Other specified postprocedural states
CPT/HCPCS: 36415; 58661; 58662; 80053; 81001; 81025; 84702; 85025; 85610; 85730; 86850; 86900; 86901; 88307; J1100; J1171; J1885; J2250; J2405; J2704; J3010; J3490; Q9968

== ENCOUNTER → 2025-01-25 | Outpatient (CLI) | payer BC, MEDICAID ==
[~2025-01-25] MED LIST changes: -DexAMETHasone SOD PHOS 10MG/1ML VIAL INJ ONE; -FAMOTIDINE (10MG/ML) 2ML VL IV ONE; -HYDROmorphone HCL 2 MG/ML VL/or syr IV PRN; -HYDROmorphone HCL 2 MG/ML VL/or syr ONE; +LACT10SO3 PO; -MIDAZOLAM HCL 2MG/2ML 2ml VIAL (1mg/ml) IV PRN; -MIDAZOLAM HCL 2MG/2ML 2ml VIAL (1mg/ml) ONE; -MORPHINE SULFATE 4 MG/ML SYR/VIAL IV PRN; -ONDANSETRON HCL 4 MG/2 ML VIAL ONE; -PROPOFOL 10 MG/ML 20 ML IV ONE; -ROCURONIUM 10MG/ML 10ML VIAL IV ONE; -SUGAMMADEX 200mg/2ml Vial (100MG/ML) IV ONE; -ePHEDrine SULFATE 50 MG/ML AMP IV PRN; -fentaNYL CITRATE 100 MCG/2 ML VL ONE; -hydrALAZINE HCL 20 MG/ML VL IV PRN
[2025-01-25 11:24] LABS: Basophils # (auto) 0 10 ^3/uL (0-0.2); Basophils % (auto) 0.6 % (0.0-2.0); Eosinophils # (auto) 0.2 10 ^3/uL (0-0.8); Eosinophils % (auto) 2.7 % (0.0-7.0); Hemoglobin 14.1 g/dL (12.2-16.2); Lymphocytes # (auto) 2.2 10 ^3/uL (0.4-5.4); Lymphocytes % (auto) 32.2 % (10.0-50.0); Mean Corpuscular Hemoglobin 31.5 pg (28.0-32.0); Mean Corpuscular Hgb Conc. 34.4 g/dL (32.0-36.0); Mean Corpuscular Volume 91.7 fL (80.0-100.0); Monocytes # (auto) 0.4 10 ^3/uL (0-1.3); Neutrophils % (auto) 58.5 % (37.0-80.0); Platelet Count (auto) 218 10^3/uL (140-450); Red Blood Cells 4.47 10^6/uL (4.0-5.20); Red Cell Distribution Width 13.1 % (11.8-14.3); White Blood Cell 6.9 10^3/uL (4.4-10.8)
[2025-01-25 11:47] LABS: Alanine Aminotransferase 35 U/L (7-40); Alkaline Phosphatase 59 U/L (46-116); Anion Gap 6 (5-15); Aspartate Aminotransferase 18 U/L (13-40); BUN/Creatinine Ratio 14.6 (10.0-20.0); Blood Urea Nitrogen 12 mg/dL (9-23); Calcium 9.9 mg/dL (8.7-10.4); Carbon Dioxide 28 mmol/L (20-31); Chloride 104 mmol/L (98-107); Glucose 99 mg/dL (74-106); Potassium 4.1 mmol/L (3.5-5.1); Sodium 138 mmol/L (136-145); Total Protein 7.4 g/dL (5.7-8.2)
[2025-01-25 11:48] LABS: Bilirubin, Total 0.9 mg/dL (0.2-1.0)
== END | disposition home or self-care (01) ==
LOC: LAB 10:51
PROVIDERS: ATTEND Internal Medicine Gastroenterology
DX: K21.9 Gastro-esophageal reflux disease without esophagitis (principal)
CPT/HCPCS: 36415; 80053; 84443; 85025; 86003

== ENCOUNTER 2025-08-12 11:06 | Day surgery (SDC) | payer BC, MEDICAID ==
[2025-08-11 11:57] LABS: Hematocrit 41.9 % (36.0-46.0); Hemoglobin 14.5 g/dL (12.2-16.2); Mean Corpuscular Hemoglobin 30.9 pg (28.0-32.0); Mean Corpuscular Volume 89.1 fL (80.0-100.0); Nucleated Red Blood Cells % 0.1 %
[2025-08-11 12:16] LABS: INR 0.92 (0.9-1.15); Partial Thromboplastin Time 28.7 SEC (24.5-34.5); Prothrombin Time 9.8 sec (9.3-11.8)
[2025-08-11 12:27] LABS: Alanine Aminotransferase 25 U/L (7-40); Alkaline Phosphatase 58 U/L (46-116); Anion Gap 9 (5-15); BUN/Creatinine Ratio 8.9 (10.0-20.0); Blood Urea Nitrogen 9 mg/dL (9-23); Calcium 10.0 mg/dL (8.7-10.4); Carbon Dioxide 28 mmol/L (20-31); Chloride 102 mmol/L (98-107); Glucose 84 mg/dL (74-106); Potassium 4.2 mmol/L (3.5-5.1); Sodium 139 mmol/L (136-145); Total Protein 8.0 g/dL (5.7-8.2)
[2025-08-11 12:28] LABS: Albumin 5.1 g/dL (3.2-4.8); Bilirubin, Total 0.6 mg/dL (0.2-1.0)
[~2025-08-12] VITALS: Ht 160 cm; Wt 84.8 kg
[~2025-08-12 11:06] MED LIST changes: -HYDR-4902 PO; -IBUP-1455 PO; -LACT10SO3 PO; +MULT-1018 OR; -NORE-69 PO; -PANT40TA2 PO; -SERT25TA28 PO
[2025-08-12] MEDS ORDERED: SODIUM CHLORIDE LOCK 10 ML ONE (11:25)
[2025-08-12 14:15] VITALS: PULSE 65; RESP 20
[2025-08-12] MEDS: LIDOCAINE VISCOUS 2% 15ML UD ONE (14:18)
[2025-08-12] MEDS: diphenhdrAMINE HCL 50 MG/1 ML VL ONE (14:19)
[2025-08-12] MEDS: fentaNYL CITRATE 100 MCG/2 ML VL ONE (14:19)
[2025-08-12] MEDS: MIDAZOLAM HCL 5 MG/ML-1ML VIAL ONE (14:19)
[2025-08-12 14:35] VITALS: PULSE 86; RESP 21; TEMP 98; O2SAT 99
--- NOTE | 2025-08-12 14:38 | DVHOP2 ---
Operative Report DATE OF OPERATION: 08/12/25 PROCEDURE: Upper Endoscopy with biopsy. PREOPERATIVE INDICATION: The patient is a 30 -year-old female undergoing endoscopy for epigastric pain and chronic GERD POSTOPERATIVE DIAGNOSES: 1. 1-2 cm sliding-type hiatal hernia with slightly irregular squamocolumnar junction grade a erosive esophagitis 2. Mild gastritis and gastropathy in the proximal stomach otherwise normal examination up to the 2nd and 3rd part of the duodenum PROCEDURE PERFORMED BY: Naima Pereyra GI NURSE: Wendy SCOPE: Olympus videoendoscope. ASA CLASS: 1 PREOPERATIVE MEDICATIONS: Versed 5 mg, Fentanyl 100 mcg, Benadryl 50 mg I administered moderate sedation throughout this _7_ minutes procedure. An independent trained observer pushed medications at my direction, and monitored t he patient's level of consciousness and physiological status throughout. PROCEDURE IN DETAIL: After obtaining an informed consent, the patient was placed on left lateral decubitus position. The patient was then sedated with the above medications. A bite block was placed between her teeth. The endoscope was then passed through the oropharynx, into the esophagus, and through the stomach and pylorus up to the second and third part of the duodenum. The endoscope was then withdrawn. The 2nd and 3rd part of the duodenal in the duodenal bulb were normal. Duodenal biopsies were obtained The pre-pyloric area antrum and body showed minimal gastritis on retroflexion patient had mild gastropathy of the proximal stomach Gastric biopsies were obtained. The endoscope was then withdrawn into the distal esophagus. Patient had a 1-2 cm sliding-type hiatal hernia with irregular squamocolumnar junction and grade a erosive esophagitis The remaining distal and proximal esophagus and oropharynx were unremarkable. GE junction biopsies were obtained The patient tolerated the procedure well without difficulty. COMPLICATIONS : None SPECIMENS: Duodenal biopsies Gastric biopsies GE junction biopsies DISPOSITION: Stable D/C to home PLAN: 1. Await for biopsy result 2. Will place pt on Protonix 40 mg p.o. daily 3. Avoid aspirin NSAIDs smoking alcohol 4. Lifestyle and dietary modifications for GERD 5. Outpatient follow up with me in 4-6 weeks to review results and discuss further management NAIMA PEREYRA MD Aug 12, 2025 14:38
[2025-08-12] MEDS: ONDANSETRON HCL 4 MG/2 ML VIAL IV ONE (15:02)
[2025-08-12 15:05] VITALS: BP 102/60; PULSE 62; RESP 15
== END 2025-08-12 15:25 | disposition home or self-care (01) ==
LOC: GI 11:06
PROVIDERS: ATTEND Internal Medicine Gastroenterology
DX: K21.00 Gastro-esophageal reflux disease with esophagitis, without bleeding (principal); K31.9 Disease of stomach and duodenum, unspecified; K44.9 Diaphragmatic hernia without obstruction or gangrene; K29.50 Unspecified chronic gastritis without bleeding; R10.13 Epigastric pain; K29.01 Acute gastritis with bleeding
CPT/HCPCS: 36415; 43239; 80053; 81025; 85025; 85610; 85730; 88305; 88312; 88342; J1200; J2250; J2405; J3010; J7030